=== PATIENT | female | born 1940 | race Asian ===

== ENCOUNTER 2016-12-09 10:12 | Day surgery (SDC) | payer MEDICARE, BC ==
[2016-12-09] MEDS ORDERED: ACETAMINOPHEN 325 MG ONE (10:20)
[2016-12-09] MEDS: PROPARACAINE HCL 0.5% OPHTHALMIC SOL ONE ×3 (10:35→12:05)
[2016-12-09] MEDS: PHENYLEPHRINE HCL 10% OPHTHAL SOL ONE ×2 (10:35→10:49)
[2016-12-09] MEDS: CYCLOPENTOLATE 1% SOL ONE ×2 (10:36→10:50)
[2016-12-09] MEDS ORDERED: POVIDONE IODINE 5% SOL ONE (10:36)
[2016-12-09] MEDS ORDERED: LIDOCAINE HCL 2% MPF SOL ONE (10:36)
[2016-12-09] MEDS ORDERED: BSS W/ 0.25MG P.F. EPI 1 BOTTLE ONE (10:37)
[2016-12-09] MEDS ORDERED: TRYPAN BLUE 0.5 ML SOL IO ONE (10:37)
[2016-12-09] MEDS ORDERED: LIDOCAINE HCL 1% MPF SOL ONE (10:37)
[2016-12-09] MEDS ORDERED: HYALURONIDASE 200 U/ML SOL SC ONE (10:37)
[2016-12-09] MEDS ORDERED: MIDAZOLAM 2 MG/2 ML SOL ONE (10:51)
[2016-12-09] MEDS ORDERED: PROPOFOL 10 MG/ML EMU IV ONE (10:51)
[2016-12-09] MEDS ORDERED: ERYTHROMYCIN OPTHAL 1 GM TUBE ONE (11:59)
[2016-12-09] MEDS ORDERED: ACETAZOLAMIDE 500 MG CER ONE (13:04)
[2016-12-09 13:08] VITALS: RESP 20; TEMP 97.2; O2SAT 94
[2016-12-09 13:10] VITALS: BP 124/74; PULSE 65
== END 2016-12-09 13:20 | disposition home or self-care (01) | DRG 125 ==
LOC: SURG 10:12
PROVIDERS: ATTEND Ophthalmology
DX: H25.9 Unspecified age-related cataract (principal); H57.09 Other anomalies of pupillary function
CPT/HCPCS: J2250; J3470; J2001; J2704

== ENCOUNTER 2018-08-04 09:03 | Day surgery (SDC) | payer MEDICARE, BC ==
[~2018-08-04 09:03] MED LIST: LIDOCAINE HCL 1% MPF 30 SOL ONE; PROPOFOL 500 MG/50 ML EMU IV ONE
[2018-08-04 11:05] VITALS: BP 142/67; PULSE 56; RESP 18; TEMP 97.3; O2SAT 84
== END 2018-08-04 11:28 | disposition home or self-care (01) | DRG 392 ==
LOC: SURG 09:03
PROVIDERS: ATTEND Surgery
DX: R19.5 Other fecal abnormalities (principal); D12.5 Benign neoplasm of sigmoid colon
CPT/HCPCS: J2001; J2704